=== PATIENT | female | born 1980 | race Two or more races ===

== ENCOUNTER 2024-02-05 05:47 | Emergency (ER) | payer BC ==
[~2024-02-05] VITALS: Ht 162.6 cm; Wt 72.6 kg
[2024-02-05] MEDS ORDERED: LEXAPRO5 MG PO (06:13)
[2024-02-05] MEDS ORDERED: HYOSCYAMINE SULFATE 0.125 MG TAB.SUBL SL STA (07:09)
[2024-02-05] MEDS ORDERED: FAMOTIDINE/PF 20 MG/2 ML VIAL IV PUSH STA (07:11)
[2024-02-05] MEDS ORDERED: 0.9 % SODIUM CHLORIDE 1,000 ML IV ONE (07:15)
[2024-02-05 07:43] LABS: MEAN CELL VOLUME 101.1 fL (80.00-100.00); MEAN CORPUSCULAR HEMOGLOBIN 34.6 pg (27.00-32.0); MEAN CORPUSCULAR HGB CONC 34.3 g/dl (32.0-36.0); PLATELET COUNT 172 K/uL (150-450); RED BLOOD COUNT 3.76 M/uL (4.00-6.00); RED CELL DISTRIBUTION WIDTH 11.6 % (11.5-14.5)
[2024-02-05 08:43] LABS: CALCIUM 8.1 mg/dL (8.5-10.1); CREATININE SERUM 1.03 mg/dL (0.55-1.02); GFR 58.76; POTASSIUM 3.54 mEq/L (3.5-5.1)
[2024-02-05 10:09] LABS: URINE APPEARANCE Clear; URINE BILIRRUBIN Small (NEGATIVE); URINE BLOOD Negative; URINE COLOR Dark Yellow; URINE GLUCOSE Negative (NEGATIVE); URINE KETONE Trace (NEGATIVE); URINE LEUKOCYTE Small; URINE NITRATE Negative; URINE PROTEIN 30 (NEGATIVE)
[2024-02-05 10:13] LABS: URINE BACTERIA 3309.8 uL (0.0-1933); URINE EPITHELIAL CELLS 23.1 uL (0.0-38.8); URINE RBC 18.3 uL (0.0-20.8); URINE WBC 72.3 uL (0.0-23.2)
[2024-02-05 10:19] LABS: URINE CAST 1.22 uL (0.0-1.40)
== END 2024-02-05 11:20 | disposition home or self-care (01) ==
LOC: ER 05:49
PROVIDERS: General Practice
DX: R11.10 Vomiting, unspecified (principal); R19.7 Diarrhea, unspecified; Z88.6 Allergy status to analgesic agent